=== PATIENT | female | born 1955 | race Asian ===

== ENCOUNTER 2018-06-05 08:37 | Day surgery (SDC) | payer OTHER ==
[~2018-06-05] VITALS: Ht 160 cm; Wt 71.8 kg
[~2018-06-05 08:37] MED LIST: 0.9% SODIUM CHLORIDE 10 ML SYRINGE IVP PRN; AMLO-512 PO; ATOR40TA28 PO; CLOP75 PO; HYDR25TA PO; METO25 PO; METOPROLOL TARTRATE 50 MG TABLET PO PRN; NITR.4 SL; OMEP20 PO; VITAD1000 PO
[2018-06-05 09:52] LABS: ANION GAP 4 mmol/L (8-16); CALCIUM, TOTAL 9.6 mg/dL (8.8-10.5); CARBON DIOXIDE 30 mmol/L (22-29); CHLORIDE 103 mmol/L (98-107); CREATININE 0.94 mg/dL (0.60-1.30); GLOMERULAR FILTR. RATE CALC > 60 mL/min (>60); GLUCOSE,RANDOM 92 mg/dL (70-110); POTASSIUM 4.1 mmol/L (3.5-5.1); SODIUM SERUM 137 mmol/L (136-145); UREA NITROGEN, BLOOD 14 mg/dL (7-18)
[2018-06-05] MEDS ORDERED: IOVERSOL 350 MG/ML 150 ML VIAL ONE (11:42)
[2018-06-05] MEDS ORDERED: SODIUM CHLORIDE 0.9% 100 ML ONE (11:43)
[2018-06-05] MEDS ORDERED: METOPROLOL TARTRATE 5 MG/5 ML VIAL IVP ONE (11:53)
[2018-06-05] MEDS ORDERED: NITROGLYCERIN 400 MCG/SUBLINGUAL SPRAY 4.9 GM BOTTLE SL ONE (12:01)
== END 2018-06-05 12:45 | disposition home or self-care (01) ==
LOC: SURGERY 08:37 → EDSTATUS 10:00 → SURGERY 12:45
PROVIDERS: ATTEND Internal Medicine Cardiovascular Disease
DX: I25.118 Atherosclerotic heart disease of native coronary artery with other forms of angina pectoris (principal); I08.3 Combined rheumatic disorders of mitral, aortic and tricuspid valves; I25.89 Other forms of chronic ischemic heart disease; K21.9 Gastro-esophageal reflux disease without esophagitis; I11.9 Hypertensive heart disease without heart failure; E78.00 Pure hypercholesterolemia, unspecified; I49.3 Ventricular premature depolarization; Z79.01 Long term (current) use of anticoagulants; Z86.73 Personal history of transient ischemic attack (TIA), and cerebral infarction without residual deficits; Z98.890 Other specified postprocedural states; Z79.899 Other long term (current) drug therapy
CPT/HCPCS: 36415; 75574; 80048; 93005; J7050; Q9967